=== PATIENT | male | born 1950 | race Caucasian/White ===

== ENCOUNTER → 2022-08-02 | Outpatient (CLI) | payer OTHER | END | disposition home or self-care (01) | LOC: RAH 12:37 | PROVIDERS: ATTEND Internal Medicine Cardiovascular Disease | DX: Z13.6 Encounter for screening for cardiovascular disorders (principal) | CPT/HCPCS: 75571 ==

== ENCOUNTER → 2022-08-22 | Outpatient (CLI) | payer OTHER ==
[~2022-08-22] MED LIST: REGADENOSON 0.4 MG/5 ML PF SYG IVP ONE
== END | disposition home or self-care (01) ==
LOC: SHCH 08:12
PROVIDERS: ATTEND Internal Medicine Cardiovascular Disease
DX: I25.10 Atherosclerotic heart disease of native coronary artery without angina pectoris (principal)
CPT/HCPCS: 78452; 96374; 93017; J2785; A9500 ×2

== ENCOUNTER → 2023-06-28 | Outpatient (CLI) | payer OTHER | END | disposition home or self-care (01) | LOC: LAB 15:01 | PROVIDERS: ATTEND Internal Medicine Cardiovascular Disease | DX: I10 Essential (primary) hypertension (principal) | CPT/HCPCS: 36415; 84132 ==

== ENCOUNTER → 2024-12-09 | Outpatient (CLI) | payer OTHER ==
--- NOTE | 2024-12-09 13:58 | HMCIMG ---
EXAM: CR LUMBAR SPINE, 4 VIEWS CLINICAL HISTORY: COMPARISON: None provided TECHNIQUE: Frontal, lateral, Flexion and extension radiographs of the lumbar spine were obtained. FINDINGS: Vertebrae: Preserved vertebral body height. No fracture. Vertebral alignment: Marked scoliotic deformity of the lumbar spine being convex right side. No spondylolisthesis. There is Straightening of lordosis may reflecting spasm. Discs/Degenerative Changes: Degenerative changes of the lumbar spine are present, characterized by multiple anterior and posterior osteophytes, subchondral sclerosis of the articular surfaces, and degenerative changes involving the disc spaces. Sacroiliac Joints: Degenerative changes of both sacroiliac joints. Included abdomen: No pathologic calcifications observed. Included bowel gas pattern is non-obstructive. IMPRESSION: 1. Marked right-convex scoliotic deformity of the lumbar spine with straightening of lordosis, possibly reflecting spasm. 2. Degenerative changes of the lumbar spine with multiple anterior and posterior osteophytes, disc space narrowing, and subchondral sclerosis of the articular surfaces. 3. Degenerative changes of both sacroiliac joints. 4. No acute fracture or spondylolisthesis. 5. Preserved vertebral body height. 6. Non-obstructive bowel gas pattern in the included portion of the abdomen. /[place]
--- NOTE | 2024-12-09 13:58 | HMCIMG ---
EXAM: CR Cervical Spine, 4 View. CLINICAL HISTORY: Radiculopathy, cervical region. COMPARISON: None provided. FINDINGS: BONES: No acute fracture or aggressive osseous lesion identified. Vertebral body heights maintained. DISCS / DEGENERATIVE CHANGES: Severe degenerative cervical spondylosis with marginal osteophyte formation. Marked intervertebral disc space narrowing from C4???C5 through C7???T1. Associated endplate sclerosis and facet joint arthropathy noted at corresponding levels. Posterior vertebral body alignment within normal limits. SOFT TISSUES: No prevertebral soft tissue swelling. Visualized lung apices are clear. IMPRESSION: 1. No acute osseous injury. 2. Severe cervical spondylosis with osteophytes, marked disc space narrowing C4-C5 through C7-T1, and associated endplate sclerosis and facet joint arthropathy. /[place]
== END | disposition home or self-care (01) ==
LOC: RAH 11:00
PROVIDERS: ATTEND Physical Medicine & Rehabilitation
DX: M47.813 Spondylosis without myelopathy or radiculopathy, cervicothoracic region (principal); M48.03 Spinal stenosis, cervicothoracic region; M54.12 Radiculopathy, cervical region; M47.816 Spondylosis without myelopathy or radiculopathy, lumbar region; M54.2 Cervicalgia; M48.062 Spinal stenosis, lumbar region with neurogenic claudication; M54.16 Radiculopathy, lumbar region; M25.78 Osteophyte, vertebrae; M53.3 Sacrococcygeal disorders, not elsewhere classified; M40.46 Postural lordosis, lumbar region
CPT/HCPCS: 72050; 72114

== ENCOUNTER → 2024-12-27 | Outpatient (CLI) | payer OTHER ==
--- NOTE | 2024-12-28 08:37 | HMCIMG ---
EXAM: MR Lumbar Spine Without Intravenous Contrast. CLINICAL HISTORY: Lumbar spine radiculopathy. TECHNIQUE: Magnetic resonance images of the lumbar spine in multiple planes. CONTRAST: None. COMPARISON: None. FINDINGS: For this examination, spinal levels were labeled assuming five non-rib bearing, lumbar-type vertebrae with the inferior labeled L5. No acute fracture. Normal lordotic curvature. Mild dextroscoliosis of the lumbar spine. Normal vertebral body height and marrow signal intensity. Multilevel disc desiccation and degenerative reduction in disc space at L1-L2, L2-L3, L3-L4, L4-L5 and L5-S1 level with multilevel degenerative facet arthropathy and disc osteophyte complex bulge. Conus medullaris terminates at the T12-L1 level. No abnormal epidural masses. The surrounding soft tissues are unremarkable. Individual spinal levels are described as follows: T11-T12 level severe right facet arthropathy and moderate to severe narrowing of the right neural foramina. Abutment of the right exiting T11 nerve root. T12-L1: No disc bulge or herniation. No neural foraminal, lateral recess or spinal canal stenosis. L1-L2: No disc bulge or herniation. No neural foraminal, lateral recess or spinal canal stenosis. L2-L3: Degenerative reduction in disc space. Type II Modic endplate changes. Broad-based circumferential 4 mm disc osteophyte complex bulge, greater left-sided component. Minimal right facet joint effusion. Moderate left facet arthropathy. Moderate narrowing of the left neural foramina. Abutment of the left exiting L2 nerve root. L3-L4: Disc desiccation with degenerative reduction in disc space. Type I Modic end plate changes. Asymmetric 4 mm left paracentral disc bulge with mild bilateral facet arthropathy, left more than right and ligamentum flavum hypertrophy. Moderate to severe narrowing of the left neural foramina and moderate narrowing of the left lateral recess. Abutment of the left exiting L3 and traversing L4 nerve root. No spinal canal stenosis. L4-L5: Disc desiccation with degenerative reduction in disc space. Broad-based circumferential 4 mm disc osteophyte complex bulge. Mild bilateral facet arthropathy, right more than left, and facet joint effusion. Moderate to severe narrowing of the right neural foramina. Mild narrowing of the right lateral recess and left neural foramina. Abutment of the bilateral exiting L4 nerve root, right more than left, and right traversing L5 nerve root. No spinal canal stenosis. L5-S1: Degenerative reduction in disc space. 5 mm right paracentral disc osteophyte complex bulge. Moderate bilateral facet arthropathy. Moderate to severe narrowing of the right neural foramina right pars defect at L5-S1 level. Mild narrowing of the right lateral recess. No spinal canal stenosis. IMPRESSION: No evidence of acute fracture or subluxation. Left pars defect at the L5-S1 level without evidence of anterolisthesis. Mild dextro scoliosis of the lumbar spine.Multilevel disc desiccation and degenerative reduction in disc space at L1-L2, L2-L3, L3-L4, L4-L5, and L5-S1 levels with multilevel degenerative facet arthropathy and disc osteophyte complex bulge. Moderate degenerative changes in the lumbar spine as described above, most prominent at the L5-S1 level. Severe right facet arthropathy at the T11-T12 level and moderate to severe narrowing of the right neural foramina. Abutment of the right exiting T11 nerve root. /[place]
--- NOTE | 2024-12-28 08:39 | HMCIMG ---
EXAM: MR Cervical Spine Without Intravenous Contrast. CLINICAL HISTORY: Cervicalgia TECHNIQUE: Magnetic resonance images of the cervical spine in multiple planes. CONTRAST: None. COMPARISON: Prior cervical spine radiographs dated December 09, 2024. FINDINGS: The imaged posterior fossa is unremarkable. The craniocervical junction is intact. No acute fracture. Loss of cervical lordosis. Normal vertebral body height and marrow signal intensity. Multilevel disc desiccation with degenerative reduction in disc space at C4-C5, C5-C6, C6-C7 and C7-T1 level with degenerative anterior osteophyte and multilevel uncinate process hypertrophy from C5-C7 level and facet arthropathy. No abnormal signal involves the cervical cord. No extra-axial masses. The surrounding soft tissues are unremarkable. Level by level disease is present as follows: C1-C2: No osteoarthritis. C2-C3: No disc bulge or herniation. No neural foraminal, lateral recess or spinal canal stenosis. C3-C4: No disc bulge or herniation. No neural foraminal, lateral recess or spinal canal stenosis. C4-C5: Disc desiccation with degenerative reduction in disc space with anterior osteophyte. Minimal bilateral C5 uncinate process hypertrophy and moderate narrowing of the right neural foramina. Mild narrowing of the left neural foramina. Abutment of bilateral exiting C5 nerve root, right more than left. C5-C6: Disc desiccation with degenerative reduction in disc space. Minimal 2.5 mm disc osteophyte complex bulge and bilateral C6 uncinate process hypertrophy. Moderate to severe narrowing of the bilateral neural foramina. Abutment of bilateral exiting C6 nerve root. No spinal canal stenosis. C6-C7: Disc desiccation with degenerative reduction in disc space with anterior osteophyte. Bilateral C7 uncinate process hypertrophy. Moderate narrowing of the bilateral neural foramina. Abutment of bilateral exiting C7 nerve root. No spinal canal stenosis. C7-T1: Disc desiccation with degenerative reduction in disc space and anterior osteophyte. Bilateral T1 uncinate process hypertrophy right more than left. Moderate to severe narrowing of the right neural foramina and mild narrowing of the left neural foramina. Abutment of bilateral exiting C8 nerve root. IMPRESSION: No evidence of acute fracture or subluxation. Normal vertebral body height. Loss of cervical lordosis.Multilevel disc desiccation with degenerative reduction in disc space at C4-C5, C5-C6, C6-C7 and C7-T1 level with degenerative anterior osteophyte and multilevel uncinate process hypertrophy from C5-C7 level and facet arthropathy. Moderate to severe degenerative changes in the cervical spine most prominent at C5-C6 level. /[place]
== END | disposition home or self-care (01) ==
LOC: RAH 09:18
PROVIDERS: ATTEND Physical Medicine & Rehabilitation
DX: M47.817 Spondylosis without myelopathy or radiculopathy, lumbosacral region (principal); M54.16 Radiculopathy, lumbar region; M41.86 Other forms of scoliosis, lumbar region; M25.78 Osteophyte, vertebrae; M51.379 Other intervertebral disc degeneration, lumbosacral region without mention of lumbar back pain or lower extremity pain; M48.04 Spinal stenosis, thoracic region; M47.814 Spondylosis without myelopathy or radiculopathy, thoracic region; M48.07 Spinal stenosis, lumbosacral region; M47.812 Spondylosis without myelopathy or radiculopathy, cervical region; M50.31 Other cervical disc degeneration, high cervical region; M50.321 Other cervical disc degeneration at C4-C5 level; M50.322 Other cervical disc degeneration at C5-C6 level; M50.323 Other cervical disc degeneration at C6-C7 level
CPT/HCPCS: 72141; 72148